=== PATIENT | male | born 1985 ===

== ENCOUNTER 2017-02-26 13:02 | Emergency (ER) | payer MEDICAID, OTHER ==
[2017-02-26 13:25] VITALS: O2SAT 97
--- NOTE | 2017-02-26 13:57 | C.PDOC ---
Chief Complaint (Nursing): High Blood Pressure Past Medical History Vital Signs: Last Vital Signs Temp 98.1 F 02/26/17 13:19 Pulse 114 H 02/26/17 13:19 Resp 18 02/26/17 13:19 BP 154/102 H 02/26/17 13:19 Pulse Ox 97 02/26/17 13:19 Family History: States: Unknown Family Hx - Social History Hx Alcohol Use: Yes Hx Substance Use: Yes (Cocaine) - Immunization History Hx Tetanus Toxoid Vaccination: No Hx Influenza Vaccination: No Hx Pneumococcal Vaccination: No ED Course And Treatment O2 Sat by Pulse Oximetry: 97
[2017-02-26 14:47] VITALS: BP 131/84; PULSE 84; RESP 16; TEMP 97.9
--- NOTE | 2017-02-26 15:09 | C.PDOC ---
History Of Present Illness 31 yr old male presents to the ER stating every time he takes cocaine he experiences chest pain. Patient states when the symptoms occur, his blood pressure goes up. Currently patient states he has no chest pain. Patient states today he went to [facility] and was told his blood pressure is high. Patient denies trauma, nausea, vomiting, abdominal pain, back pain, weakness or numbness. Time Seen by Provider: 02/26/17 13:43 Chief Complaint (Nursing): High Blood Pressure History Per: Patient History/Exam Limitations: no limitations Onset/Duration Of Symptoms: Days Past Medical History Reviewed: Historical Data, Nursing Documentation, Vital Signs Vital Signs: Last Vital Signs Temp 97.9 F 02/26/17 14:20 Pulse 82 02/26/17 14:20 Resp 16 02/26/17 14:20 BP 131/84 02/26/17 14:20 Pulse Ox 97 02/26/17 15:14 Family History: States: No Known Family Hx - Social History Hx Alcohol Use: Yes Hx Substance Use: Yes (Cocaine) - Immunization History Hx Tetanus Toxoid Vaccination: No Hx Influenza Vaccination: No Hx Pneumococcal Vaccination: No Review Of Systems Except As Marked, All Systems Reviewed And Found Negative. Cardiovascular: Negative for: Chest Pain Gastrointestinal: Negative for: Nausea, Vomiting, Abdominal Pain Musculoskeletal: Negative for: Back Pain Neurological: Negative for: Weakness, Numbness Physical Exam - Physical Exam Appears: Non-toxic, No Acute Distress Skin: Warm, Dry, No Rash Head: Atraumatic, Normacephalic Eye(s): bilateral: Normal Inspection, PERRL, EOMI Oral Mucosa: Moist Neck: Normal ROM, Supple Chest: Symmetrical, No Tenderness Cardiovascular: Rhythm Regular, No Friction Rub, No Murmur Respiratory: Normal Breath Sounds, No Rales, No Rhonchi, No Stridor, No Wheezing Gastrointestinal/Abdominal: Soft, No Tenderness Extremity: Normal ROM, No Swelling Neurological/Psych: Oriented x3, Normal Speech, Normal Motor ED Course And Treatment ECG: Interpreted By Me, Viewed By Me ECG Rhythm: Sinus Tachycardia ECG Interpretation: Normal Rate From EC (BPM) O2 Sat by Pulse Oximetry: 97 (RA ) Pulse Ox Interpretation: Normal Medical Decision Making Medical Decision Making: PLAN: * EKG EKG is normal and patient has no chest pain in the ED. BP has improved. On re- exam, the patient reports improvement of symptoms. Lungs are CTA, heart is RRR, abdomen is soft, non-tender and patient is tolerating PO well. Ambulatory in the ED with steady gait. Follow up with the medical doctor within 1-2 days. Return if worsened. Disposition - Disposition Referrals: [facility] at [facility] [Outside] Disposition: HOME/ ROUTINE Disposition Time: 15:14 Condition: GOOD Additional Instructions: Follow up with the medical doctor within 1-2 days. Return if worsened. Instructions: Cocaine Abuse (ED) - Clinical Impression Clinical Impression: Cocaine abuse - PA / [employer] / Resident Statement MD/DO has reviewed & agrees with the documentation as recorded. - Scribe Statement The provider has reviewed the documentation as recorded by the Scribe Arcelia Kelley All medical record entries made by the Scribe were at my direction and personally dictated by me. I have reviewed the chart and agree that the record accurately reflects my personal performance of the history, physical exam, medical decision making, and the department course for this patient. I have also personally directed, reviewed, and agree with the discharge instructions and disposition.
--- NOTE | 2017-03-03 19:15 | CARD ---
APPROVED REPORT EKG Measurement Heart [id number] <Conclusion> Sinus tachycardia Otherwise normal ECG
== END 2017-02-26 15:20 | disposition home or self-care (01) ==
LOC: C.ER 13:02
DX: F14.10 Cocaine abuse, uncomplicated (principal)

== ENCOUNTER 2017-06-26 21:03 | Emergency (ER) | payer SELFPAY ==
[2017-06-26] MEDS ORDERED: Albuterol-Ipratrop 3 mg / 0.5 (3 ml) UD ONE (21:13)
[2017-06-26] MEDS ORDERED: DiphenhydrAMINE 50 mg/ml Inj ONE (21:15)
[2017-06-26] MEDS ORDERED: DiphenhydrAMINE 50 mg/ml Inj IVP STA (21:24)
[2017-06-26] MEDS ORDERED: Sodium Chloride 0.9% 1,000 ML IV ONE (21:24)
[2017-06-26] MEDS ORDERED: Sodium Chloride 0.9% 1,000 ML ONE (21:28)
--- NOTE | 2017-06-26 22:09 | C.PDOC ---
History Of Present Illness 31 year old male presents to the ER with a complaint of a diffuse itchy rash, swollen eyelids, swollen lips, cough, and mild SOB that began at approximately 18:00. Patient states he ate dinner (white rice, beans, bread) and afterwards felt itchy and like he was having an allergic reaction. Patient reports he took 2 tablets of claritin but symptoms continued to worsen, which prompted ER visit. Patient notes he is allergic to seafood but denies eating any seafood today. Patient denies sensation of throat closing or tongue swelling. Time Seen by Provider: 06/26/17 21:13 Chief Complaint (Nursing): Allergic Reaction History Per: Patient History/Exam Limitations: no limitations Onset/Duration Of Symptoms: Hrs Current Symptoms Are (Timing): Still Present Possible Cause: Food Associated Symptoms: Skin Rash, Swelling, Dyspnea (mild), Itching. denies: Trouble Swallowing, Dizziness, Chest Pain Home/EMS Treatment: Other (Claritin (2 tabs)) Severity: Moderate Past Medical History Reviewed: Historical Data, Nursing Documentation, Vital Signs Vital Signs: Last Vital Signs Temp 97.1 F L 06/26/17 23:38 Pulse 87 06/26/17 23:38 Resp 20 06/26/17 23:38 BP 129/80 06/26/17 23:38 Pulse Ox 98 06/26/17 23:38 - Medical History PMH: No Chronic Diseases Surgical History: No Surg Hx Family History: States: No Known Family Hx - Social History Hx Alcohol Use: Yes Hx Substance Use: No - Immunization History Hx Tetanus Toxoid Vaccination: No Hx Influenza Vaccination: No Hx Pneumococcal Vaccination: No Review Of Systems Except As Marked, All Systems Reviewed And Found Negative. Constitutional: Negative for: Fever, Chills ENT: Positive for: Other (Eyelid swelling) Cardiovascular: Negative for: Chest Pain, Palpitations Respiratory: Positive for: Cough, Shortness of Breath Gastrointestinal: Negative for: Nausea, Vomiting, Abdominal Pain Skin: Positive for: Rash, Other (pruritis) Physical Exam - Physical Exam Appears: Well, Non-toxic, Other (appears mildly uncomfortable, speaking in complete sentences) Skin: Normal Color, Warm, Dry, Other (diffuse urticarial rash) Head: Normacephalic Eye(s): bilateral: Normal Inspection, Other (Mild eyelid swelling) Oral Mucosa: Moist, No Drooling Tongue: Normal Appearing, No Swelling Lips: Swelling (Mild) Throat: Normal, No Erythema, No Exudate, No Drooling, No Other (Uvula swelling) Neck: Normal, Supple Cardiovascular: Rhythm Regular Respiratory: Normal Breath Sounds, No Accessory Muscle Use, No Rales, No Rhonchi , No Stridor, No Wheezing Gastrointestinal/Abdominal: Normal Exam, Bowel Sounds, Soft, No Tenderness Neurological/Psych: Oriented x3 ED Course And Treatment O2 Sat by Pulse Oximetry: 99 (Room air) Pulse Ox Interpretation: Normal Progress Note: Patient placed on monitoring engineer. He was given IV Solumedrol, IV Benadryl, IV Pepcid, and IV NS bolus. Reevaluation Time: 23:30 Reassessment Condition: Improved (On reassessment, patient states he feels much better and would like to be discharged home. He was observed for 2 1/2 hrs in ED, and appears significantly improved. He has no intraoral swelling, drooling/ stridor. Vitals WNL. Patient given Rxs for Prednisone, Benadryl and Epi-Pen ( instructions on epipen use also given). He was instructed to follow up with PMD /clinic in 1-2 days, and understands he should return to ED if symptoms return/ worsen.) Disposition Counseled Patient/Family Regarding: Studies Performed, Diagnosis, Need For Followup, Rx Given - Disposition Referrals: [facility] [Outside] Disposition: HOME/ ROUTINE Disposition Time: 23:30 Condition: STABLE Additional Instructions: FOLLOW UP WITH YOUR DOCTOR/CLINIC IN 1-2 DAYS USE MEDICATIONS DIRECTED RETURN TO ER IF SYMPTOMS WORSEN USE EPIPEN ONLY IN CASES OF ANAPHYLAXIS!! Prescriptions: DiphenhydrAMINE [Benadryl] 25 mg PO Q6 PRN #20 cap PRN Reason: PRURITIS Epinephrine [Epipen] 0.3 mg SC ONCE #1 auto.injct predniSONE [predniSONE Tab] 40 mg PO DAILY #6 tab Instructions: General Allergic Reaction (ED) Forms: [facility] (Salvadorean), Work Excuse Print Language: FAROESE - Clinical Impression Clinical Impression: Allergic reaction, Urticaria - Scribe Statement The provider has reviewed the documentation as recorded by the Scribchad Vo All medical record entries made by the Lenaibchad were at my direction and personally dictated by me. I have reviewed the chart and agree that the record accurately reflects my personal performance of the history, physical exam, medical decision making, and the department course for this patient. I have also personally directed, reviewed, and agree with the discharge instructions and disposition.
[2017-06-26 23:40] VITALS: BP 129/80; PULSE 87; RESP 20; TEMP 97.1
[2017-06-27 23:34] VITALS: O2SAT 99
== END 2017-06-26 23:40 | disposition home or self-care (01) ==
LOC: C.ER 21:03
DX: L50.9 Urticaria, unspecified (principal); T78.40XA Allergy, unspecified, initial encounter; X58.XXXA Exposure to other specified factors, initial encounter; Z91.013 Allergy to seafood
CPT/HCPCS: 96361; 96374; 96375; 99285; J1200; J2930; J7040

== ENCOUNTER 2018-01-02 06:15 | Emergency (ER) | payer SELFPAY ==
[2018-01-02 06:35] VITALS: TEMP 97.6
--- NOTE | 2018-01-02 08:10 | C.PDOC ---
History Of Present Illness 32-year-old male, presents to the emergency department with complaints of nasal congestion, runny nose and itchy eyes. Patient has been experiencing these allergy symptoms for the past several weeks. He is taking OTC meds with no relief. Denies nausea/vomiting, fever, chills, chest pain or any other associated symptoms. No other complaints at this time. Time Seen by Provider: 01/02/18 07:27 Chief Complaint (Nursing): ENT Problem History Per: Patient History/Exam Limitations: no limitations Past Medical History Reviewed: Historical Data, Nursing Documentation, Vital Signs Vital Signs: Last Vital Signs Temp 97.6 F 01/02/18 06:30 Pulse 66 01/02/18 08:26 Resp 17 01/02/18 08:26 BP 125/86 01/02/18 08:26 Pulse Ox 100 01/02/18 12:25 Family History: States: No Known Family Hx - Social History Hx Alcohol Use: Yes Hx Substance Use: No - Immunization History Hx Tetanus Toxoid Vaccination: No Hx Influenza Vaccination: No Hx Pneumococcal Vaccination: No Review Of Systems Constitutional: Negative for: Fever Eyes: Negative for: Pain, Redness ENT: Positive for: Nose Discharge, Nose Congestion. Negative for: Throat Pain Respiratory: Negative for: Cough, Sputum Gastrointestinal: Negative for: Vomiting Musculoskeletal: Negative for: Back Pain Physical Exam - Physical Exam Appears: Non-toxic, No Acute Distress Skin: Normal Color, Warm, Dry, No Rash Head: Atraumatic, Normacephalic Eye(s): bilateral: Normal Inspection, PERRL, EOMI Ear(s): Bilateral: Normal Nose: Discharge (rhinorrhea) Oral Mucosa: Moist Lips: Normal Appearing Throat: No Erythema, No Exudate Neck: Normal ROM, Supple Chest: Symmetrical, No Tenderness Cardiovascular: Rhythm Regular, No Friction Rub, No Murmur Respiratory: Normal Breath Sounds, No Accessory Muscle Use, No Rales, No Rhonchi , No Wheezing Gastrointestinal/Abdominal: Soft, No Tenderness Extremity: Normal ROM, No Deformity, No Swelling Neurological/Psych: Oriented x3, Normal Speech, Normal Motor Gait: Steady ED Course And Treatment O2 Sat by Pulse Oximetry: 100 (RA) Pulse Ox Interpretation: Normal Disposition - Disposition Referrals: [facility] at [facility] [Outside] Disposition: HOME/ ROUTINE Disposition Time: 08:05 Condition: GOOD Additional Instructions: Follow up with the medical doctor within 2-3 days. return if worsened. Prescriptions: Cetirizine HCl/Pseudoephedrine [Zyrtec-D Tablet] 1 each PO DAILY #15 tab.er.12h Fluticasone Propionate [Flonase] 1 spr NS DAILY #100 spr Instructions: Seasonal Allergies in Adults Forms: [facility] (Italian), Work Excuse - Clinical Impression Clinical Impression: Allergic rhinitis - Scribe Statement The provider has reviewed the documentation as recorded by the Scribe (Lee Durham) All medical record entries made by the Scribe were at my direction and personally dictated by me. I have reviewed the chart and agree that the record accurately reflects my personal performance of the history, physical exam, medical decision making, and the department course for this patient. I have also personally directed, reviewed, and agree with the discharge instructions and disposition.
[2018-01-02 08:27] VITALS: BP 125/86; PULSE 66; RESP 17
[2018-01-02 09:44] VITALS: O2SAT 100
== END 2018-01-02 08:27 | disposition home or self-care (01) ==
LOC: C.ER 06:15
DX: J30.9 Allergic rhinitis, unspecified (principal)